=== PATIENT | male | born 1985 | race Two or more races ===

== ENCOUNTER 2025-03-29 09:49 | Emergency (ER) | payer OTHER ==
[~2025-03-29] VITALS: Ht 170.2 cm; Wt 77.1 kg
[2025-03-29] MEDS ORDERED: SYMTUZA 800-151 EACH (10:09)
[2025-03-29] MEDS ORDERED: FAMOTIDINE/PF 20 MG in 0.9 % SODIUM CHLORIDE 8 ML IV PUSH STA (10:18)
[2025-03-29] MEDS ORDERED: KETOROLAC TROMETHAMINE 30 MG VIAL ONE (10:19)
[2025-03-29] MEDS ORDERED: FAMOTIDINE/PF 20 MG/2 ML VIAL ONE (10:19)
[2025-03-29] MEDS ORDERED: CEFTRIAXONE SODIUM 1,000 MG VIAL ONE (10:19)
[2025-03-29] MEDS ORDERED: CEFTRIAXONE SODIUM 1,000 MG VIAL IV ONE (10:30)
[2025-03-29] MEDS ORDERED: KETOROLAC TROMETHAMINE 30 MG VIAL IV ONE (10:30)
[2025-03-29] MEDS ORDERED: 0.9 % SODIUM CHLORIDE 1,000 ML IV SCH (10:30)
[2025-03-29 10:42] LABS: BASO % 0.4 % (0.1-1.2); EOS # 0.10 (0.04-0.54); EOS % 2.1 % (0.7-7.0); LYMPH # 1.65 (1.18-3.74); LYMPH % 35.0 % (19.3-53.1); MEAN PLATELET VOLUME 8.80 fl (9.4-12.4); MONO # 0.52 (0.24-0.82); MONO % 11.0 % (4.7-12.5); NEUT # 2.42 (1.56-6.13); NEUT % 51.3 % (34.0-71.1); RED CELL DISTRIBUTION WIDTH 12.7 % (11.6-14.4)
[2025-03-29 11:27] LABS: INR 0.96
[2025-03-29 11:31] LABS: ALT/SGPT 38.0 U/L (12-78); AST/SGOT 31.0 U/L (15-37); BILIRUBIN TOTAL 0.4 mg/dL (0.3-1.2); BUN CREA RATIO 13.0 (7.0-25.0); CREATININE SERUM 1.18 mg/dL (0.70-1.30); GFR 68.72; GLOBULINA 4.0 G/DL (2.4-3.5); GLUCOSE FASTING 109.0 mg/dL (65-100); OSMOLALITY SERUM 286.0 MOSM/KG (275-295)
[2025-03-29] MEDS ORDERED: LEVSIN/SL0.125 MG SL (13:00)
[2025-03-29] MEDS ORDERED: METRONIDAZOLE500 MG PO (13:00)
[2025-03-29] MEDS ORDERED: PROTONIX40 MG PO (13:00)
[2025-03-29] MEDS ORDERED: CIPRO500 MG PO (13:00)
== END 2025-03-29 13:20 | disposition home or self-care (01) ==
LOC: ER 09:49
PROVIDERS: General Practice
DX: R10.31 Right lower quadrant pain (principal); K52.89 Other specified noninfective gastroenteritis and colitis